=== PATIENT | female | born 1960 | race Caucasian/White ===

== ENCOUNTER 2019-03-28 15:44 | Outpatient (CLI) | payer OTHER | END 2019-03-28 19:17 | disposition home or self-care (01) | LOC: SMA 15:44 | PROVIDERS: ATTEND General Practice | DX: Z12.31 Encounter for screening mammogram for malignant neoplasm of breast (principal) | CPT/HCPCS: 77067 ==

== ENCOUNTER 2019-05-22 15:31 | Outpatient (CLI) | payer OTHER | END 2019-05-22 20:30 | disposition home or self-care (01) | LOC: SRD 15:31 | PROVIDERS: ATTEND General Practice | DX: M19.012 Primary osteoarthritis, left shoulder (principal) | CPT/HCPCS: 73030 ==

== ENCOUNTER 2021-03-18 15:24 | Outpatient (CLI) | payer BC | END 2021-03-18 21:24 | disposition home or self-care (01) | LOC: SMA 15:24 | DX: Z12.31 Encounter for screening mammogram for malignant neoplasm of breast (principal) | CPT/HCPCS: 77067 ==